=== PATIENT | male | born 1985 | race Caucasian/White ===

== ENCOUNTER 2021-11-27 07:23 | Emergency (ER) | payer SELFPAY ==
[~2021-11-27] VITALS: Ht 172.7 cm; Wt 74.8 kg
--- NOTE | 2021-11-27 07:54 | NUR ---
Recieved pt by torito responded to painfully stimel MUMBLING when strange to touch stimllie not fallow command
[2021-11-27 08:07] LABS: BASOPHILS # (AUTO) 0.1 K/uL (0.0-0.2); BASOPHILS % (AUTO) 0.4 % (0.0-2.0); EOSINOPHILS % (AUTO) 1.9 % (0.0-6.0); HEMATOCRIT 44 % (39-51); HEMOGLOBIN 14.8 g/dL (13.5-17.5); LYMPHOCYTES # (AUTO) 2.8 K/uL (0.8-4.8); LYMPHOCYTES % (AUTO) 19.2 % (20.0-44.0); MEAN CORPUSCULAR HGB CONC 34 g/dl (31.0-36.0); MEAN CORPUSCULAR VOLUME 89 fL (80-96); NEUTROPHILS # (AUTO) 10.4 K/uL (1.8-8.9); NEUTROPHILS % (AUTO) 71.5 % (43.0-81.0); PLATELET COUNT (AUTO) 319 K/uL (150-450); RED BLOOD CELL COUNT(AUTO) 4.93 MIL/uL (4.5-6.0); WHITE BLOOD COUNT (AUTO) 14.6 K/uL (4.3-11.0)
--- NOTE | 2021-11-27 08:10 | NUR ---
LAB TACH AT BED SIDE DROWIN BLOODD
[2021-11-27 08:24] LABS: ALANINE AMINOTRANSFERASE 19 U/L (12-78); ALBUMIN 3.7 g/dL (3.4-5.0); ALKALINE PHOSPHATASE 55 U/L (46-116); ASPARTATE AMINOTRANSFERASE 14 U/L (15-37); BILIRUBIN,DIRECT 0.1 mg/dL (0.0-0.2); BILIRUBIN,TOTAL 0.3 mg/dL (0.2-1.0); CALCIUM, SERUM 8.5 mg/dL (8.5-10.1); CARBON DIOXIDE 28 mmol/L (21-32); CHLORIDE 103 mmol/L (98-107); CREATININE 1.1 mg/dL (0.6-1.3); GLUCOSE 223 mg/dL (74-106); POTASSIUM 3.6 mmol/L (3.5-5.1); SODIUM SERUM 136 mmol/L (136-145); TOTAL PROTEIN, SERUM 7.2 g/dL (6.4-8.2); UREA NITROGEN, BLOOD 10 mg/dL (7-18)
[2021-11-27 08:25] LABS: ACETAMINOPHEN < 10 ug/ml (10-30); ALCOHOL, BLOOD < 3 mg/dL (0-0)
--- NOTE | 2021-11-27 11:11 | NUR ---
SS consult requested for possible drug use. SW met with pt. at bedside. The pt. is alert & oriented x 4. The pt. appears unkempt and makes good eye contact. The pt.'s speech & thought process are WNL. The pt. denies current SI/HI and denies hallucinations. SW explored pt.'s drug use. Pt. states that he may have use "something". Pt. states he rarely uses drugs and it is normally not a problem for him. SW use motivational interviewing and educated pt. on substance use dependence. SW offered rehab refearral and pt. refused. SW provided pt with homeless resources and pt. accepted them. Pt. denies homelessness. Pt. states he is independent with his ADL's. Pt. stated, " I just want to leave". SW provided pt. with the following addiction resources and pt. accepted them: ADDICTION RESOURCES For Drugs and Alcohol [facility] sober living Referrals For Rehabilitation once sober Address:[address] [place] [address] [facility] Address: [address] [place] [address] [facility] Substance Abuse Helpline([facility] Outpatient treatment, residential treatment, recovery support for youth and adults [facility] www.[facility] Teen programs for drug/alcohol education and support [facility] [place]. Program for adults, sliding scale provides support and education [facility]) www.select specialty hospitaloundation.org Bailey; Detox/residential treatment programs; transition to sober living [facility] www.cri-help.org [place]; Outpatient and residential treatment programs; transition to sober living [facility] Elpidio Nunn; Outpatient education and supportive programs for teens and adults [facility] www.oasiswomensrecovery.org Jenn; Residential treatment and work program for females only Sina Bell www.ETHERA.Vringo Jenn: Outpatient/residential treatment program for teens and young adults [facility] www.[facility].org [place] Detox, inpatient, outpatient for adults and youth [facility], [facility]. Sarah Ann; Outpatient programs and referrals to community residential programs. Alcoholics Anonymous -SFV information and meeting and schedules www.aa-intergroup.org Xf-Iccd-Zdknvtd https://al-anon.org/ [place] support groups for family of alcoholics. Marijuana Anonymous www.Stackopsistrict6.org -sfv listing of meetings Narcotics Anonymous www.na.org SOBER LIVING RESOURCES [facility] www.soberhousing.[employer] A non-profit agency that provides resources to recovery and sober living homes throughout [place], [place], [facility] Men's Sober Living Homes: A Work in ProgressRodrigo [facility], [place] [facility] Women's Sober Living Homes: [facility] [phone] [place], [place] [facility] Sober Living Homes: [facility] Counseling--Outpatient [facility] [address] [facility] [place] [address] (Specializes in in-depth psychotherapy for emotional distress: anxiety, depression, interpersonal conflicts, life transitions, childhood abuse) [facility] [address] [place] [address] (Assist with solving problem marital difficulties, separation & divorce, aging parents, & grief, chronic & terminal illness) [facility] [address] [place] [address] (Deal with loss & grief, anxiety, marital difficulties) Homebound/Mental Health Services [address] [facility], [address] [place], [place] [address] (Provide in-home mental services to people who are incapable of leaving their homes) [facility] Needs of the Elderly Senior Service/Resource Center [address] [place] [address] [facility] [address] [place] [address] Mental Health Services Alexandria Eckert [address] [place] [address] Services: Outpatient therapy for children, teens, young adults, adults, older adults, and families; Psychiatric services, medication support Psychiatric Outpatient Services [facility] Partial Hospitalization and Intensive Outpatient Program (Managed Care and [place] Only)[address] [facility] [phone] [facility] Partial Hospitalization and Outpatient [id number] [facility]. [address] [place], [place] [phone] [facility] Partial Hospitalization and Outpatient Zbe[address] [place], [place] [phone] Count includes the [facility] [id number] [facility]. [address] [place], [place] [phone] [facility] Partial Hospitalization and Outpatient Urwenvh[address] [place], [phone] Crisis and Hotline Telephone Numbers 24-Hour service unless stated Jansen Crisis Hotlines: Get.com. Mental Health/Crisis Line........813.728.7294 Suicide Prevention Center (24 Hours).......606.210.6027 Suicide Prevention Crisis Center.......492.957.9344 (24 Hours) Assaults Against Women Hotline.........736.268.9501 (24 Hours -- [facility]) Women and Children Crisis Nursing Home...........206.714.9954 (24 Hours) Child Abuse Hotline............275.518.2189 [facility] (24 Hours)..........[phone] Alcoholics Anonymous (24 Hours)..........105.186.8339 Cocaine Anonymous (24 Hours)............[phone] Narcotics Anonymous (24 Hours)..........[phone] Fernanda Linton [facility] [address], [place] [address]
--- NOTE | 2021-11-27 11:43 | NUR ---
Patient discharged to home in stable condition. Written and verbal after care instructions given. Patient verbalizes understanding of instruction.
[2021-11-27 11:44] VITALS: BP 143/84
--- NOTE | 2021-11-27 11:45 | NUR ---
PT FULLY AWAKE AND ALERT FALLOW COMMNED D/C INSTRACTION GIVEN TO PT FULLY UNDERSTOOD
== END 2021-11-27 11:44 | disposition home or self-care (01) ==
LOC: ER 07:23 → EDBD 07:23 → ER 11:44
DX: R46.1 Bizarre personal appearance (principal); R73.9 Hyperglycemia, unspecified; R00.0 Tachycardia, unspecified; Z59.00 Homelessness unspecified
CPT/HCPCS: 36415; 71045-TC; 80048-TC; 80076-TC; 84484-TC; 85025-TC; G0480